=== PATIENT | female | born 1965 | race American Indian/Alaskan Native ===

== ENCOUNTER 2018-03-06 05:52 | Day surgery (SDC) | payer OTHER ==
[2018-03-06] VITALS (10 sets, daily range): BP systolic 143–180; BP diastolic 78–106; PULSE 52–70; TEMP 97.1
[~2018-03-06] VITALS: Ht 170.2 cm; Wt 132.2 kg
[~2018-03-06 05:52] MED LIST: AMLOPIDINE PO; ASPIRIN 32325 MG/TAB PO; HCTZ 25MG25 MG PO; LISINOPRIL20 MG PO; MICARDIS HCT PO; NEXIUM40 MG PO; PRILOSEC 20MG20 MG PO; SIMVASTATIN10 MG PO; TOPROL XL100 MG PO; ZOCOR 20MG20 MG PO
[2018-03-06 07:02] LABS: HEMATOCRIT 37.4 % (37.0-47.0); HEMOGLOBIN 12.5 g/dl (12.5-16.0); MEAN CELL VOLUME 91 fl (80.0-100.0); MEAN CORPUSCULAR HEMOGLOBIN 30 pg (27.0-31.0); MEAN CORPUSCULAR HGB CONC 33 g/dl (33.0-37.0); MEAN PLATELET VOLUME 9.6 fl (7.4-10.4); PLATELET COUNT 301 K/mm3 (130-400); RED BLOOD COUNT 4.13 M/mm3 (4.10-5.30); REDCELL DISTRIBUTION WIDTH-CV 12.6 % (11.5-14.5)
[2018-03-06 07:10] LABS: CALCIUM 8.9 mg/dL (8.4-10.2); CREATININE, serum 0.56 mg/dL (0.52-1.25); POTASSIUM 4.1 mmol/L (3.4-5.0); PROTHROMBIN TIME 10.8 SECONDS (9.7-12.8)
[2018-03-06] MEDS ORDERED: ULTRAM 50MG TAB50 MG PO (07:17)
[2018-03-06] MEDS ORDERED: ROBAXIN 50500 MG/TAB PO (07:18)
[2018-03-06] MEDS ORDERED: TRICOR145 MG PO (07:19)
[2018-03-06] MEDS ORDERED: SINGULAIR 110 MG/TAB PO (07:19)
[2018-03-06] MEDS ORDERED: ASPIRIN 81M81 MG/TA2 PO (07:19)
[2018-03-06] MEDS ORDERED: NEURONTIN100 MG/CAP PO (07:20)
[2018-03-06] MEDS ORDERED: GLUCOPHAGE850 MG/TAB PO (07:20)
[2018-03-06] MEDS ORDERED: OMEGA-3 FISH1000 MG PO (07:21)
[2018-03-06] MEDS ORDERED: RESTASIS MULTI5.5 ML OP (07:22)
[2018-03-06] MEDS ORDERED: CELEBREX 200MG200 MG PO (07:24)
[2018-03-06] MEDS ORDERED: VITAMIN D 50,1.25 MG PO (07:24)
[2018-03-06] MEDS ORDERED: HCTZ 25MG TAB25 MG PO (07:25)
[2018-03-06] MEDS ORDERED: PROTONIX 40MG T40 MG PO (07:25)
[2018-03-06] MEDS ORDERED: FLONASEALLERGY NS (07:26)
[2018-03-06] MEDS ORDERED: PROAIR HFA0.09 MG/AC IH (07:27)
[2018-03-06] MEDS ORDERED: CRESTOR40 MG PO (07:27)
[2018-03-06] MEDS ORDERED: ZESTRIL40 MG PO (07:28)
[2018-03-06] MEDS ORDERED: NORVASC 5MG5 MG/TAB PO (07:28)
[2018-03-06] MEDS ORDERED: ALDOMET 250MG250 MG PO (07:30)
[2018-03-06] MEDS ORDERED: CATAPRES 0.1MG0.1 MG PO (12:07)
== END 2018-03-06 13:59 | disposition home or self-care (01) ==
LOC: COL.CAR 05:52
PROVIDERS: Internal Medicine Cardiovascular Disease
DX: I25.10 Atherosclerotic heart disease of native coronary artery without angina pectoris (principal); R94.39 Abnormal result of other cardiovascular function study; I10 Essential (primary) hypertension; N13.2 Hydronephrosis with renal and ureteral calculous obstruction; E78.5 Hyperlipidemia, unspecified; E11.9 Type 2 diabetes mellitus without complications; Z79.82 Long term (current) use of aspirin; Z79.84 Long term (current) use of oral hypoglycemic drugs; Z88.0 Allergy status to penicillin; Z88.8 Allergy status to other drugs, medicaments and biological substances; Z83.3 Family history of diabetes mellitus; Z82.49 Family history of ischemic heart disease and other diseases of the circulatory system; Z80.9 Family history of malignant neoplasm, unspecified
CPT/HCPCS: J1200; J1644; J2250; J2930; J3010; Q9967